=== PATIENT | male | born 1935 | race Caucasian/White ===

== ENCOUNTER → 2017-03-14 | Day surgery (SDC) | payer MEDICARE ==
[~2017-03-14] VITALS: Ht 175.3 cm; Wt 84.0 kg
[~2017-03-14] MED LIST: ACETAMINOPHEN 500 MG CPLT ONE; ASPI1TAB69 PO; AUGM875T PO; CLIN1CAP6 PO; CYCLOPENTOLATE HCL 1% OPHT SOLN 2 ML BTL ONE; FLURBIPROFEN 0.03% OPHT SOLN 2.5 ML BTL ONE; GLIM2TAB PO; GLYB5TAB3 PO; HYDR-3516 PO; LEVA750T PO; LEVO88TA2 PO; LIDOCAINE HCL 1% 30 ML VIAL ONE; LIDOCAINE HCL 2% JELLY 5 ML SYRINGE ONE; LISI10TA3 PO; METF1000 PO; OCUF0.3D RIGHT EYE; PHENYLEPHRINE HCL 10% OPTH SOLN 5 ML BTL ONE; PLAV75TA29 PO; PRAV10TA PO; PRED1SUS RIGHT EYE; PROPARACAINE HCL 0.5% OPHT SOLN 15 ML BTL ONE; SODIUM CHLORID 0.9% 500 ML INJ 500 ML ONE; TOBRAMYCIN/DEXAMETHASONE OPTH OINT 3.5 GM TUBE ONE; TROPICAMIDE 1% OPHT SOLN 15 ML BTL ONE
[2017-03-14 06:33] VITALS: BP 158/77; PULSE 64; RESP 16; TEMP 97.6; O2SAT 97
[2017-03-14 08:15] VITALS: TEMP 99.1
[2017-03-14 08:35] VITALS: BP 139/62; PULSE 65; RESP 16; O2SAT 98
--- NOTE | 2017-03-15 17:52 | MP ---
cc: KOLE MUSTAFA M.D. [facility] #[id number] DATE OF SURGERY 03/14/17 POSTOPERATIVE DIAGNOSIS: Visually significant cataract right eye. OPERATION: Phacoemulsification with posterior chamber lens implantation, right eye. SURGEON: Kole Mustafa MD ANESTHESIA: Topical with MAC. COMPLICATIONS: None. PROCEDURE: After informed consent was obtained, the patient was brought into the operative suite and placed on appropriate monitors by the Anesthesia Service. The patient had been given dilating drops and topical lidocaine gel in the holding area. The patient's operative eye was then prepped and draped in the usual sterile fashion. A wire lid speculum was placed. Further 2% lidocaine was then dropped on the cornea prior to beginning the procedure. A paracentesis incision was made in the peripheral cornea with a 1 mm pb keratome. The anterior chamber was filled with viscoelastic. The anterior chamber was then entered through a stepped, clear corneal incision using a sharp 3 mm pb keratome. A circular tear capsulorrhexis was then made with a bent needle cystitome. Following hydrodissection of the lens nucleus with balance saline, phaco-emulsification of the nucleus was performed using a modified chopping technique. The remaining cortex was removed with irrigation/aspiration. The prior two procedures were both performed using the handpieces of the [employer] phaco unit. The capsular bag was then filled with viscoelastic. The intraocular lens was then injected into the capsular bag and positioned. The type of intraocular lens and its power can be found elsewhere in this chart. The remaining viscoelastic was then removed from the anterior chamber with the IA handpiece. The anterior chamber was reformed with balanced saline. The wound was then closed securely with stromal hydration. It was found to be watertight to an intraocular pressure of at least 30 mmHg by palpation. A small amount of balanced salt solution was then removed through the paracentesis site and the intraocular pressure at the end of the case was approximately 20 by palpation. All drapes were then removed. TobraDex ointment was then placed in the eye, which was closed beneath a semi-pressure patch dressing. The patient tolerated this procedure well and left the operating room awake and alert. The patient is to follow-up in my office in the morning. MD GHASSAN Brar/ /9:33 AM /5:40 PM
== END | disposition home or self-care (01) ==
LOC: PHSDC 06:10
PROVIDERS: ATTEND Optometrist Occupational Vision
DX: H25.811 Combined forms of age-related cataract, right eye (principal); E11.9 Type 2 diabetes mellitus without complications; Z79.84 Long term (current) use of oral hypoglycemic drugs
CPT/HCPCS: 00142; 66984; J7040; V2632

== ENCOUNTER 2017-03-19 10:44 | Inpatient (IN) | payer MEDICARE ==
[~2017-03-19] VITALS: Ht 175.3 cm; Wt 85.1 kg
[~2017-03-19 10:44] MED LIST changes: -ACETAMINOPHEN 500 MG CPLT ONE; -AUGM875T PO; -CLIN1CAP6 PO; -CYCLOPENTOLATE HCL 1% OPHT SOLN 2 ML BTL ONE; -FLURBIPROFEN 0.03% OPHT SOLN 2.5 ML BTL ONE; -GLIM2TAB PO; -HYDR-3516 PO; -LIDOCAINE HCL 1% 30 ML VIAL ONE; -LIDOCAINE HCL 2% JELLY 5 ML SYRINGE ONE; -OCUF0.3D RIGHT EYE; -PHENYLEPHRINE HCL 10% OPTH SOLN 5 ML BTL ONE; -PRED1SUS RIGHT EYE; -PROPARACAINE HCL 0.5% OPHT SOLN 15 ML BTL ONE; -SODIUM CHLORID 0.9% 500 ML INJ 500 ML ONE; -TOBRAMYCIN/DEXAMETHASONE OPTH OINT 3.5 GM TUBE ONE; -TROPICAMIDE 1% OPHT SOLN 15 ML BTL ONE
[2017-03-19 10:51] VITALS: BP 155/70; PULSE 62; RESP 18; TEMP 97.8; O2SAT 100
[2017-03-19] MEDS ORDERED: TETANUS/DIPHTHERIA TOXOID ADULT 0.5 ML VIAL IM ONE (11:15)
[2017-03-19] MEDS ORDERED: VANCOMYCIN INJ 1,250 MG in SODIUM CHLOR 0.9% 250 ML INJ 250 ML IV ONE (11:15)
[2017-03-19] MEDS ORDERED: SODIUM CHLORID 0.9% 500 ML INJ 500 ML IV ONE (11:15)
[2017-03-19] MEDS ORDERED: cefTRIAXone INJ 2,000 MG in SODIUM CHLORIDE 0.9% INJ 100 ML IV ONE (11:15)
[2017-03-19 11:30] LABS: AUTOMATED NEUTROPHIL # 5.1 TH/MM3 (1.8-7.7); BASOPHIL % 0.5 % (0.0-2.0); EOSINOPHIL # 0.1 TH/MM3 (0-0.4); EOSINOPHIL % 1.9 % (0.0-4.0); HEMATOCRIT 33.1 % (39.0-51.0); HEMO FLAGS DIFF FINAL; LYMPH % 17.6 % (9.0-44.0); LYMPHOCYTE # 1.2 TH/MM3 (1.0-4.8); MEAN CELL VOLUME 87.3 FL (80.0-100.0); MEAN CORPUSCULAR HEMOGLOBIN 29.1 PG (27.0-34.0); MEAN CORPUSCULAR HGB CONC 33.4 % (32.0-36.0); MONO % 7.4 % (0.0-8.0); NEUT % 72.6 % (16.0-70.0); PLATELET COUNT 379 TH/MM3 (150-450); RED BLOOD COUNT 3.79 MIL/MM3 (4.50-5.90); RED CELL DISTRIBUTION WIDTH 12.3 % (11.6-17.2); WHITE BLOOD COUNT 6.9 TH/MM3 (4.0-11.0)
--- NOTE | 2017-03-19 11:30 | PD ---
HPI Chief Complaint: General Weakness Time Seen by Provider: 11:00 Travel History International Travel<30 days: No Contact w/Intl Traveler<30days: No Traveled to known affect area: No History of Present Illness HPI Patient is a 81-year-old male with history of diabetes, presents to emergency room for admission to the hospital. As per patient, he reports that he dropped a can on his right digit #3 about 9-10 days ago, reports that he noticed that his toe began to get infected. Patient reports that he went to his hand quilter office this morning, Dr. Tanner and was told to go to the ER for admission to the hospital. Reports that he is scheduled for the OR on as Dr. Tanner believes that he has osteomyelitis to his right third digit. Patient did have an x-ray in the office today. Byproducts Maker request an MRI of the foot with and without contrast as well as IV antibiotics and admission to the medicine service. Patient reports that he has not been on antibiotics for this new infection to his toe. PFSH Past Medical History Hx Anticoagulant Therapy: Yes (plavix) Asthma: No Autoimmune Disease: No Heart Rhythm Problems: No Cancer: No Cardiovascular Problems: Yes (RIGHT FOOT) High Cholesterol: Yes Chemotherapy: No Chest Pain: No Congestive Heart Failure: No COPD: Yes Cerebrovascular Accident: No Diabetes: Yes Patient Takes Glucophage: Yes Diminished Hearing: No Endocrine: No Gastrointestinal Disorders: No Glaucoma: No Genitourinary: No Hepatitis: No Hiatal Hernia: No Hypertension: Yes Immune Disorder: No Kidney Stones: No Medical other: Yes (PVD) Musculoskeletal: Yes (RIGHT 1ST & 2ND TOES AMPUTATED) Neurologic: Yes (NEUROPATHY) Psychiatric: No Reproductive: No Respiratory: Yes (COPD) Integumentary: No Migraines: No Radiation Therapy: No Seizures: No Sickle Cell Disease: No Sleep Apnea: No Thyroid Disease: Yes Ulcer: No Tetanus Vaccination: < 5 Years Influenza Vaccination: Yes Past Surgical History Abdominal Surgery: No AICD: No Arteriovenous Shunt: No Cardiac Surgery: Yes (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) Coronary Stent: Yes (RIGHT NECK) Ear Surgery: No Endocrine Surgery: No Eye Surgery: No Genitourinary Surgery: No Gynecologic Surgery: No Joint Replacement: No Oral Surgery: No Pacemaker: No Thoracic Surgery: No Tonsillectomy: Yes Other Surgery: Yes (HEMMORRHOIDS,TONSILS, RIGHT GREAT/2ND TOE AMPUTATION) Social History Alcohol Use: No Tobacco Use: No Substance Use: No Allergies-Medications (Allergen,Severity, Reaction): Coded Allergies: *MDRO Multi-Drug Resistant Organism (Verified Adverse Reaction, Unknown, ) 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 Reported Meds & Prescriptions Reported Meds & Active Scripts Active Reported Pravastatin 10 Mg Tab 10 Mg PO DAILY Metformin (Metformin HCl) 1,000 Mg Tab 1,000 Mg PO BIDPC With meals Lisinopril 10 Mg Tab 10 Mg PO DAILY Levothyroxine (Levothyroxine Sodium) 88 Mcg Tab 88 Mcg PO DAILY Levaquin (Levofloxacin) 750 Mg Tab 750 Mg PO DAILY Glyburide 5 Mg Tab 10 Mg PO BID Take with meals at the same time each day Plavix (Clopidogrel Bisulfate) 75 Mg Tab 75 Mg PO DAILY Aspirin 81 Mg Tabdr 81 Mg PO DAILY Review of Systems General / Constitutional: No: Fever, Chills Eyes: No: Visual changes HENT: No: Headaches Cardiovascular: No: Chest Pain or Discomfort Respiratory: No: Shortness of Breath Gastrointestinal: No: Abdominal Pain Genitourinary: No: Dysuria Musculoskeletal: Positive: Pain Skin: No Rash Neurologic: No: Weakness Psychiatric: No: Depression Endocrine: No: Polydipsia Hematologic/Lymphatic: No: Easy Bruising Physical Exam Narrative GENERAL: nad, nontoxic SKIN: Focused skin assessment warm/dry. HEAD: Atraumatic. Normocephalic. EYES: Pupils equal and round. No scleral icterus. No injection or drainage. ENT: No nasal bleeding or discharge. Mucous membranes pink and moist. NECK: Trachea midline. No JVD. CARDIOVASCULAR: Regular rate and rhythm. No murmur appreciated. RESPIRATORY: No accessory muscle use. Clear to auscultation. Breath sounds equal bilaterally. GASTROINTESTINAL: Abdomen soft, non-tender, nondistended. Hepatic and splenic margins not palpable. MUSCULOSKELETAL: No obvious deformities. Patient with area of open drainage to right toe digit #3 with purulent drainage, patient with redness from right foot to mild calf, pulses intact, neurovascularly intact. LLE: normal exam NEUROLOGICAL: Awake and alert. No obvious cranial nerve deficits. Motor grossly within normal limits. Normal speech. PSYCHIATRIC: Appropriate mood and affect; insight and judgment normal. Data Data Last Documented VS Vital Signs Date Time Temp Pulse Resp B/P Pulse Ox O2 Delivery O2 Flow Rate FiO2 03/19/17 10:51 97.8 62 18 155/70 100 Orders Basic Metabolic Panel (Bmp) (03/19/17 11:05) Complete Blood Count With Diff (03/19/17 11:05) Blood Culture (03/19/17 11:05) Iv Access Insert/Monitor (03/19/17 11:05) Ceftriaxone Inj (Rocephin Inj) (03/19/17 11:15) Vancomycin Inj (Vancomycin Inj) (03/19/17 11:15) Sodium Chlorid 0.9% 500 Ml Inj (Ns 500 M (03/19/17 11:15) Prothrombin Time / Inr (Pt) (03/19/17 11:17) Act Partial Throm Time (Ptt) (03/19/17 11:17) Labs Laboratory Tests Test 03/19/17 11:15 White Blood Count 6.9 TH/MM3 Red Blood Count 3.79 MIL/MM3 Hemoglobin 11.1 GM/DL Hematocrit 33.1 % Mean Corpuscular Volume 87.3 FL Mean Corpuscular Hemoglobin 29.1 PG Mean Corpuscular Hemoglobin 33.4 % Concent Red Cell Distribution Width 12.3 % Platelet Count 379 TH/MM3 Mean Platelet Volume 7.5 FL Neutrophils (%) (Auto) 72.6 % Lymphocytes (%) (Auto) 17.6 % Monocytes (%) (Auto) 7.4 % Eosinophils (%) (Auto) 1.9 % Basophils (%) (Auto) 0.5 % Neutrophils # (Auto) 5.1 TH/MM3 Lymphocytes # (Auto) 1.2 TH/MM3 Monocytes # (Auto) 0.5 TH/MM3 Eosinophils # (Auto) 0.1 TH/MM3 Basophils # (Auto) 0.0 TH/MM3 CBC Comment DIFF FINAL Differential Comment Prothrombin Time 11.0 SEC Prothromb Time International 1.0 RATIO Ratio Activated Partial 31.6 SEC Thromboplast Time Sodium Level 140 MEQ/L Potassium Level 4.6 MEQ/L Chloride Level 104 MEQ/L Carbon Dioxide Level 27.6 MEQ/L Anion Gap 8 MEQ/L Blood Urea Nitrogen 23 MG/DL Creatinine 1.40 MG/DL Estimat Glomerular Filtration 49 ML/MIN Rate Random Glucose 118 MG/DL Calcium Level 9.1 MG/DL MDM Medical Decision Making Medical Screen Exam Complete: Yes Emergency Medical Condition: Yes Interpretation(s) Vital Signs Date Time Temp Pulse Resp B/P Pulse Ox O2 Delivery O2 Flow Rate FiO2 03/19/17 10:51 97.8 62 18 155/70 100 Differential Diagnosis Osteomyelitis, cellulitis Narrative Course Patient is a 81-year-old male with history of DVTs, osteomyelitis, presents to emergency room for admission to the hospital. Patient follow up with his hand quilter today and had an xray as outpatient. Patient was sent to the emergency room for treatment and admission for osteomyelitis, request IV antibiotics, MRI of the foot with and without contrast as well as admission to medicine service. Patient does appear to have an infected right digit #3 with cellulitis. IV antibiotics as well as lab work and blood cultures ordered. Plan to admit to medicine service tetanus is up to date MRI of foot with and without contrast ordered via down time order forms as I am unable to order MRI via [employer] at this time case reviewed with who accepts pt to service Diagnosis Primary Impression: Osteomyelitis Qualified Code: M86.171 - Other acute osteomyelitis of right foot Additional Impression: Cellulitis in diabetic foot Admitting Information Admitting Physician Requests: Admit Genevieve Mclaughiln DO Mar 19, 2017 11:30
[2017-03-19 11:38] LABS: POTASSIUM 4.6 MEQ/L (3.5-5.1)
[2017-03-19 11:40] LABS: BICARBONATE 27.6 MEQ/L (21.0-32.0)
[2017-03-19 11:42] LABS: APTT (PATIENT) 31.6 SEC (24.3-30.1)
[2017-03-19] MEDS ORDERED: SODIUM CHLOR 0.9% 1000 ML INJ 1,000 ML IV SCH (12:15)
[2017-03-19] MEDS ORDERED: GADODIAMIDE PF 287 MG/ML 5 ML VIAL (for RAD MRI) IV ONE (13:42)
[2017-03-19] MEDS ORDERED: PRED1SUS RIGHT EYE (13:52)
[2017-03-19] MEDS ORDERED: OCUF0.3D RIGHT EYE (13:52)
[2017-03-19 13:55] VITALS: BP 142/60; PULSE 72; RESP 14; TEMP 97.9; O2SAT 98
[2017-03-19 14:15] VITALS: BP 147/69; PULSE 55; RESP 16; TEMP 96.6; O2SAT 100
[2017-03-19] MEDS: PIPERACIL-TAZO 3.375 GM PREMIX 50 ML IV SCH ×2 (15:15→22:37)
[2017-03-19] MEDS: INSULIN ASPART SUPPLEMENTAL SCALE SQ SCH ×2 (15:52→21:00)
--- NOTE | 2017-03-19 17:03 | HHI.HP ---
HPI Service [facility] Hospitalists Primary Care Physician Sky Rao MD, PhD Admission Diagnosis right toe osteomyelitis Chief Complaint: right 3rd toe infection/wound Travel History International Travel<30 Days: No Contact w/Intl Traveler <30 Da: No Traveled to Known Affected Are: No History of Present Illness Patient is a 81-year-old male well-known to me with history of diabetes and diabetic foot ulcers who presents to emergency room for admission to the hospital under direction of his terminal block assembler. As per patient, he reports that he dropped an old milk can on his right digit #3 about 9-10 days ago, reports that he noticed that his toe began to be read and infected appearing. He also noted some redness in his right lower leg which was worse with prolonged standing. Patient reports that he went to his terminal block assembler office this morning, Dr. Tanner and was told to go to the ER for admission to the hospital for possible surgical intervention. Reports that he is scheduled for the OR on morning as Dr. Tanner believes that he has osteomyelitis to his right third digit. Patient did have an x-ray in the office today. Belt Loop Machine Operator request an MRI of the foot with and without contrast as well as IV antibiotics and admission to the medicine service. Patient reports that he has not been on antibiotics for this new infection to his toe. Podiatry requested admission to medical service. Patient denies any fevers chills nausea or vomiting. He overall feels well but has noted some foul-smelling discharge from the foot starting last night. Review of Systems Constitutional: DENIES: Diaphoretic episodes, Fatigue, Fever, Weight gain, Weight loss, Chills, Dizziness, Change in appetite, Night Sweats Endocrine: DENIES: Heat/cold intolerance, Polydipsia, Polyuria, Polyphagia Eyes: DENIES: Blurred vision, Diplopia, Eye inflammation, Eye pain, Vision loss , Photosensitivity, Double Vision Ears, nose, mouth, throat: DENIES: Tinnitus, Hearing loss, Vertigo, Nasal discharge, Oral lesions, Throat pain, Hoarseness, Ear Pain, Running Nose, Epistaxis, Sinus Pain, Toothache, Odynophagia Respiratory: DENIES: Apneas, Cough, Snoring, Wheezing, Hemoptysis, Sputum production, Shortness of breath Cardiovascular: DENIES: Chest pain, Palpitations, Syncope, Dyspnea on Exertion , PND, Lower Extremity Edema, Orthopnea, Claudication Gastrointestinal: DENIES: Abdominal pain, Black stools, Bloody stools, BRB per rectum, Constipation, Diarrhea, GERD, Nausea, Reflux, Vomiting, Difficulty Swallowing, Anorexia, See HPI Musculoskeletal: COMPLAINS OF: Joint pain Integumentary: COMPLAINS OF: Rash Neurologic: COMPLAINS OF: Abnormal gait, Poor Balance Other Toe wound Past Family Social History Past Medical History Diabetes mellitus type 2, complicated by neuropathy/nephropathy PVD, angioplasty/arthrectomy to the RLE in 2011 with recurrent stenosis of the SFA vessel. RLE weakness (foot drop)/gait disorder, chronic COPD, PFT/Spirometry done on 09/27/14 revealed severe obstruction. HTN Hyperlipidemia Hypertensive CKD, stage 3 Hypothyroidism Cervical DDD and stenosis Past Surgical History Angioplasty/arthrectomy to the RLE [place] [address] Nora Hayes Hemorrhoidectomy Tonsillectomy with Adenoidectomy Surgical amputation of several toes Reported Medications Pravastatin 10 Mg Tab 10 Mg PO DAILY Metformin (Metformin HCl) 1,000 Mg Tab 1,000 Mg PO BIDPC With meals Lisinopril 10 Mg Tab 10 Mg PO DAILY Levothyroxine (Levothyroxine Sodium) 88 Mcg Tab 88 Mcg PO DAILY Levaquin (Levofloxacin) 750 Mg Tab 750 Mg PO DAILY Glyburide 5 Mg Tab 10 Mg PO BID Take with meals at the same time each day Plavix (Clopidogrel Bisulfate) 75 Mg Tab 75 Mg PO DAILY Aspirin 81 Mg Tabdr 81 Mg PO DAILY Allergies: Coded Allergies: *MDRO Multi-Drug Resistant Organism (Verified Adverse Reaction, Unknown, ) 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 Occasionally puffed on a cigar after that but has not done this in over a year. 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 Alert and oriented, cooperative with exam. SKIN: Erythema mid chaney and distal right lower extremity, right third toe with ulceration distally and apparent necrotic tip with partially avulsed nail HEAD: Atraumatic. Normocephalic. No temporal or scalp tenderness. EYES: Pupils equal round and reactive. Extraocular motions intact. No scleral icterus. No injection or drainage. ENT: Nose without bleeding, purulent drainage or septal hematoma. Airway patent. NECK: Trachea midline. No JVD or lymphadenopathy. Supple, nontender, no meningeal signs. CARDIOVASCULAR: Regular rate and rhythm without murmurs, gallops, or rubs. RESPIRATORY: Clear to auscultation. Breath sounds equal bilaterally. No wheezes , rales, or rhonchi. GASTROINTESTINAL: Abdomen soft, non-tender, nondistended. No hepato-splenomegaly , or palpable masses. No guarding. MUSCULOSKELETAL: Right third toe as noted above. Right great toe and second toe with partial amputation distally left second toe with amputation. No joint tenderness, effusion, or edema noted. No calf tenderness. NEUROLOGICAL: Awake and alert. Cranial nerves II through XII intact. Motor and sensory grossly within normal limits. Five out of 5 muscle strength in all muscle groups. Normal speech. Laboratory Laboratory Tests Test 03/19/17 11:15 White Blood Count 6.9 Red Blood Count 3.79 Hemoglobin 11.1 Hematocrit 33.1 Mean Corpuscular Volume 87.3 Mean Corpuscular Hemoglobin 29.1 Mean Corpuscular Hemoglobin 33.4 Concent Red Cell Distribution Width 12.3 Platelet Count 379 Mean Platelet Volume 7.5 Neutrophils (%) (Auto) 72.6 Lymphocytes (%) (Auto) 17.6 Monocytes (%) (Auto) 7.4 Eosinophils (%) (Auto) 1.9 Basophils (%) (Auto) 0.5 Neutrophils # (Auto) 5.1 Lymphocytes # (Auto) 1.2 Monocytes # (Auto) 0.5 Eosinophils # (Auto) 0.1 Basophils # (Auto) 0.0 CBC Comment DIFF FINAL Differential Comment Prothrombin Time 11.0 Prothromb Time International 1.0 Ratio Activated Partial 31.6 Thromboplast Time Sodium Level 140 Potassium Level 4.6 Chloride Level 104 Carbon Dioxide Level 27.6 Anion Gap 8 Blood Urea Nitrogen 23 Creatinine 1.40 Estimat Glomerular Filtration 49 Rate Random Glucose 118 Calcium Level 9.1 Date/Time Procedure Status Source Growth 03/19/17 11:15 Aerobic Blood Culture Received Blood Peripheral Pending 03/19/17 11:15 Anaerobic Blood Culture Received Blood Peripheral Pending Result Diagram: 03/19/17 1115 03/19/17 1115 Assessment and Plan Problem List: (1) Cellulitis in diabetic foot Status: Acute Plan: Continue IV antibiotics. Podiatry as been consult and is planning to take patient to OR on the at 7 AM. Possibly osteomyelitis. Does not appear septic. (2) PAD (peripheral artery disease) Status: Chronic Plan: Continue statins and abstinence from tobacco use. Management blood pressure. Follow for signs of acute ischemia. (3) HTN (hypertension), benign Status: Chronic Plan: Continue medication. (4) Hyperlipidemia Status: Chronic Plan: Continue medication. (5) COPD (chronic obstructive pulmonary disease) Status: Chronic Plan: Nebulizers when necessary. (6) Diabetes mellitus Status: Chronic Plan: Sliding scale insulin. Discussed Condition With Patient and his Physician Certification 2 Midnight Certification Type: Admission for Inpatient Services Order for Inpatient Services The services are ordered in accordance with Medicare regulations or non- Medicare payer requirements, as applicable. In the case of services not specified as inpatient-only, they are appropriately provided as inpatient services in accordance with the 2-midnight benchmark. Estimated LOS (days): 3 days is the estimated time the patient will need to remain in the hospital, assuming treatment plan goals are met and no additional complications. Post-Hospital Plan: Not yet determined Problem Qualifiers (1) Diabetes mellitus: Sky Rao MD PhD Mar 19, 2017 17:03
--- NOTE | 2017-03-19 17:29 | RADHPO ---
EXAM DATE/TIME: 03/19/2017 13:08 [facility] COMPARISON: MRI FOOT RIGHT W & W/O CONTRAST, October 17, 2015, 17:07. INDICATIONS : Osteomyelitis. Right 3rd digit redness. CONTRAST: 15 cc Omniscan (gadodiamide) IV MEDICAL HISTORY : Diabetes mellitus type 2. SURGICAL HISTORY : Cataracts. 2 toes on right foot removed. ENCOUNTER: Initial ACUITY: 4-6 days PAIN SCORE: 0/10 LOCATION: Right foot. TECHNIQUE: Multiplanar, multisequence MRI examination was performed without contrast and after the intravenous a dministration of gadolinium. FINDINGS: Prior MRI examination, before amputation of the distal phalanx of the 1st and 2nd digits had demonstr ated findings of osteomyelitis with enhancement in the distal phalanx and decreased signal on T1-weig hted images. There is no abnormal signal in the soft tissues about the amputation site. In the 3rd digit, distal phalanx, there is some enhancement surrounding the distal phalanx tuft, but no enhancement with in th e tuft. There is mild soft tissue swelling about the distal 3rd digit. No abnormality is seen in th e soft tissues about the 4th or 5th digit. No significant soft tissue swelling dorsally. There is m ild plantar soft tissue swelling. CONCLUSION: 1. No abnormal enhancement about the amputation sites distal 1st and 2nd digit. 2. There are equivocal findings in the distal phalanx of the 3rd digit with cortical enhancement and some T2 prolongation of the distal phalanx, but no internal enhancement. The findings are suspicious , but not diagnostic, osteomyelitis of the distal phalanx of the 3rd digit. Derrick Ignacio MD on March 19, 2017 at 17:08 Board Certified Radiologist. This report was verified electronically.
[2017-03-19] MEDS: OFLOXACIN 0.3% OPTH SOLN 5 ML BTL RIGHT EYE SCH ×2 (17:52→22:38)
[2017-03-19] MEDS: prednisoLONE ACETATE 1% OPHT SUSP 5 ML BTL RIGHT EYE SCH ×2 (17:52→22:40)
[2017-03-19 20:00] VITALS: BP 120/72; PULSE 58; RESP 20; TEMP 98.1; O2SAT 98
[2017-03-20] VITALS: BP 135/72; PULSE 58; RESP 16; TEMP 98.2; O2SAT 98
[2017-03-20 04:00] VITALS: BP 131/80; PULSE 55; RESP 18; TEMP 98; O2SAT 97
[2017-03-20] MEDS: PIPERACIL-TAZO 3.375 GM PREMIX 50 ML IV SCH ×3 (04:50→20:40)
[2017-03-20] MEDS: LEVOTHYROXINE SODIUM 88 MCG TAB PO SCH (06:02)
[2017-03-20] MEDS: INSULIN ASPART SUPPLEMENTAL SCALE SQ SCH ×4 (06:05→20:45)
--- NOTE | 2017-03-20 06:40 | HHI.PR ---
Subjective Remarks Feeling overall well. Denies any fevers or chills. Sleep was somewhat fragmented due to vital signs checks. Objective Vitals Vital Signs Date Time Temp Pulse Resp B/P Pulse Ox O2 Delivery O2 Flow Rate FiO2 03/20/17 04:00 98.0 55 18 131/80 97 03/20/17 00:00 98.2 58 16 135/72 98 03/19/17 20:00 98.1 58 20 120/72 98 03/19/17 14:15 96.6 55 16 147/69 100 03/19/17 14:10 03/19/17 13:55 97.9 72 14 142/60 98 Room Air 03/19/17 10:51 97.8 62 18 155/70 100 03/19/17 03/19/17 03/20/17 15:00 23:00 07:00 Intake Total 1652 ml 479 ml Output Total 250 ml 200 ml Balance 1402 ml 279 ml Intake Oral 380 ml IV Total 1272 ml 479 ml Output Urine Total 250 ml 200 ml # Bowel Movements 0 GENERAL: Awake and alert, cooperative. No acute distress. SKIN: Right third toe with distal wound and eschar with slight necrotic tissue formation. No discharge noted this morning. He actually has some tenderness to palpation over the wound. The right lower extremity cellulitic changes have improved. HEAD: Normocephalic. EYES: No scleral icterus. No injection or drainage. NECK: Supple, trachea midline. No JVD or lymphadenopathy. CARDIOVASCULAR: Regular rate and rhythm without murmurs, gallops, or rubs. RESPIRATORY: Breath sounds equal bilaterally. No accessory muscle use. GASTROINTESTINAL: Abdomen soft, non-tender, nondistended. Bowel sounds normal. MUSCULOSKELETAL: No cyanosis, or edema. BACK: Nontender without obvious deformity. No CVA tenderness. Result Diagram: 03/19/17 1115 03/19/17 1115 Urinary Catheter: No Vascular Central Line Catheter: No A/P Problem List: (1) Cellulitis in diabetic foot Status: Acute Plan: Continue IV antibiotics. Podiatry as been consult and is planning to take patient to OR on the at 7 AM. Possibly osteomyelitis. MRI noted. Does not appear septic. (2) PAD (peripheral artery disease) Status: Chronic Plan: Continue statins and abstinence from tobacco use. Management of blood pressure. Follow for signs of acute ischemia. (3) HTN (hypertension), benign Status: Chronic Plan: Continue medication. (4) Hyperlipidemia Status: Chronic Plan: Continue medication. (5) COPD (chronic obstructive pulmonary disease) Status: Chronic Plan: Nebulizers when necessary. (6) Diabetes mellitus Status: Chronic Plan: Sugars well controlled. Sliding scale insulin. Discharge Planning Hopefully discharge the day after surgery, but may need long-term antibiotic therapy. Problem Qualifiers (1) Diabetes mellitus: Sky Rao MD PhD Mar 20, 2017 06:39
[2017-03-20 06:43] LABS: CHLORIDE 106 MEQ/L (98-107); POTASSIUM 4.8 MEQ/L (3.5-5.1); SODIUM (NA) 142 MEQ/L (136-145)
[2017-03-20 06:47] LABS: ANION GAP 10 MEQ/L (5-15); BICARBONATE 25.6 MEQ/L (21.0-32.0); BLOOD UREA NITROGEN 20 MG/DL (7-18)
[2017-03-20 06:50] LABS: ALT (GPT) 14 U/L (12-78); AST (GOT) 10 U/L (15-37); GLOMERULAR FILTRATION RATE 49 ML/MIN (>89)
[2017-03-20 06:52] LABS: TOTAL BILIRUBIN ADULT 0.6 MG/DL (0.2-1.0)
[2017-03-20 06:53] LABS: ALKALINE PHOSPHATASE 59 U/L (45-117)
[2017-03-20] MEDS: prednisoLONE ACETATE 1% OPHT SUSP 5 ML BTL RIGHT EYE SCH ×4 (08:46→20:41)
[2017-03-20] MEDS: OFLOXACIN 0.3% OPTH SOLN 5 ML BTL RIGHT EYE SCH ×4 (08:46→20:40)
[2017-03-20] MEDS: PRAVASTATIN SOD 10 MG TAB PO SCH (08:47)
[2017-03-20] MEDS: ASPIRIN EC 81 MG TABEC PO SCH (08:47)
[2017-03-20] MEDS: LISINOPRIL 10 MG TAB PO SCH (08:47)
--- NOTE | 2017-03-20 10:59 | PD.CONS ---
History of Present Illness Service Podiatry Consult Requested By Reason for Consult R 3rd toe infection Primary Care Physician Sky Rao MD, PhD Diagnoses: History of Present Illness Patient was seen in clinic yesterday with a wound to tip of R 3rd toe and purulent drainage. He thought he may have had an injury to it or dropped something on it and part of some callused tissue had fallen off with the nail, as well as redness/swelling to the toe with drainage from the tip. He has history of infection/amputation/vascular issues. 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 RLE weakness (foot drop)/gait disorder, chronic COPD, PFT/Spirometry done on 09/27/14 revealed severe obstruction. HTN Hyperlipidemia Hypertensive CKD, stage 3 Hypothyroidism Cervical DDD and stenosis Past Surgical History Angioplasty/arthrectomy to the RLE [place] [address] Nora Hayes Hemorrhoidectomy Tonsillectomy with Adenoidectomy Surgical amputation of several toes Active Ordered Medications Current Medications Medications (Trade) Dose Ordered Sig/Henry Route Start Time Stop Time Status Last Admin (Zosyn 3.375 Gm Premix) 50 ml @ 100 mls/hr Q8H IV 03/19/17 13:00 03/20/17 04:50 (Ecotrin Ec) 81 mg DAILY PO 03/20/17 09:00 03/20/17 08:47 (Synthroid) 88 mcg DAILY@06 PO 03/20/17 06:00 03/20/17 06:02 (Prinivil) 10 mg DAILY PO 03/20/17 09:00 03/20/17 08:47 (Ocuflox 0.3% Opt Soln) 1 drop QID RIGHT EYE 03/19/17 18:00 03/20/17 08:46 (Pravachol) 10 mg DAILY PO 03/20/17 09:00 03/20/17 08:47 (Pred Forte 1% Opt Susp) 1 drop QID RIGHT EYE 03/19/17 18:00 03/20/17 08:46 (Restoril) 15 mg HS PRN PO 03/20/17 06:45 Family History Noncontributory Social History Former tobacco use, smoked 1ppd x 43 years No regular alcohol use, no illicit drug use Physical Exam Vital Signs Vital Signs Date Time Temp Pulse Resp B/P Pulse Ox O2 Delivery O2 Flow Rate FiO2 03/20/17 04:00 98.0 55 18 131/80 97 03/20/17 00:00 98.2 58 16 135/72 98 03/19/17 20:00 98.1 58 20 120/72 98 03/19/17 14:15 96.6 55 16 147/69 100 03/19/17 14:10 03/19/17 13:55 97.9 72 14 142/60 98 Room Air Physical Exam R distal 3rd toe with wound 4mm diameter and 1cm depth, probes to bone. Foul odor and purulence present with erythema and edema to digit. Laboratory Laboratory Tests Test 03/19/17 03/20/17 11:15 05:20 White Blood Count 6.9 Red Blood Count 3.79 Hemoglobin 11.1 Hematocrit 33.1 Mean Corpuscular Volume 87.3 Mean Corpuscular Hemoglobin 29.1 Mean Corpuscular Hemoglobin 33.4 Concent Red Cell Distribution Width 12.3 Platelet Count 379 Mean Platelet Volume 7.5 Neutrophils (%) (Auto) 72.6 Lymphocytes (%) (Auto) 17.6 Monocytes (%) (Auto) 7.4 Eosinophils (%) (Auto) 1.9 Basophils (%) (Auto) 0.5 Neutrophils # (Auto) 5.1 Lymphocytes # (Auto) 1.2 Monocytes # (Auto) 0.5 Eosinophils # (Auto) 0.1 Basophils # (Auto) 0.0 CBC Comment DIFF FINAL Differential Comment Prothrombin Time 11.0 Prothromb Time International 1.0 Ratio Activated Partial 31.6 Thromboplast Time Sodium Level 140 142 Potassium Level 4.6 4.8 Chloride Level 104 106 Carbon Dioxide Level 27.6 25.6 Anion Gap 8 10 Blood Urea Nitrogen 23 20 Creatinine 1.40 1.40 Estimat Glomerular Filtration 49 49 Rate Random Glucose 118 82 Calcium Level 9.1 8.8 Total Bilirubin 0.6 Aspartate Amino Transf 10 (AST/SGOT) Alanine Aminotransferase 14 (ALT/SGPT) Alkaline Phosphatase 59 Total Protein 6.7 Albumin 3.1 Date/Time Procedure Status Source Growth 03/19/17 11:15 Aerobic Blood Culture Received Blood Peripheral Pending 03/19/17 11:15 Anaerobic Blood Culture Received Blood Peripheral Pending Result Diagram: 03/19/17 1115 03/20/17 0520 Imaging Last Impressions Foot MRI 03/19/17 0000 Signed Impressions: Service Date/Time: Sunday, March 19, 2017 13:08 - CONCLUSION: 1. No abnormal enhancement about the amputation sites distal 1st and 2nd digit. 2. There are equivocal findings in the distal phalanx of the 3rd digit with cortical enhancement and some T2 prolongation of the distal phalanx, but no internal enhancement. The findings are suspicious, but not diagnostic, osteomyelitis of the distal phalanx of the 3rd digit. Derrick Ignacio MD Assessment and Plan Assessment and Plan Osteomyelitis R 3rd toe Plan for amputation tomorrow morning 7 am PO [place] NPO after midnight Sal Tanner DPM Mar 20, 2017 10:58
[2017-03-20 11:15] VITALS: BP 143/71; PULSE 58; RESP 18; TEMP 97.8; O2SAT 97
[2017-03-20 12:00] VITALS: BP 143/71; PULSE 58; RESP 18; TEMP 97.8; O2SAT 98
[2017-03-20 16:00] VITALS: BP 147/78; PULSE 55; RESP 18; TEMP 98.5; O2SAT 96
[2017-03-20 20:00] VITALS: BP 131/71; PULSE 53; RESP 20; TEMP 97.9; O2SAT 97
[2017-03-20] MEDS: TEMAZEPAM 15 MG CAP PO PRN (20:54)
[2017-03-21] VITALS (7 sets, daily range): BP systolic 122–138; BP diastolic 58–71; PULSE 50–60; RESP 15–20; TEMP 96.3–97.9; O2SAT 96–100
[2017-03-21] MEDS: PIPERACIL-TAZO 3.375 GM PREMIX 50 ML IV SCH ×3 (05:33→21:08)
[2017-03-21] MEDS: LEVOTHYROXINE SODIUM 88 MCG TAB PO SCH (05:33)
[2017-03-21] MEDS: INSULIN ASPART SUPPLEMENTAL SCALE SQ SCH ×4 (05:35→21:00)
[2017-03-21] MEDS ORDERED: BUPIVACAINE HCL PF 0.5% 30 ML VIAL ONE (06:32)
[2017-03-21] MEDS ORDERED: LIDOCAINE HCL 1% PF 30 ML VIAL ONE (06:32)
[2017-03-21] MEDS ORDERED: FAMOTIDINE 20 MG/2 ML VIAL ONE (06:58)
[2017-03-21] MEDS ORDERED: MIDAZOLAM HCL 2 MG/2 ML VIAL ONE (06:58)
--- NOTE | 2017-03-21 07:03 | HHI.PR ---
Subjective Remarks Feeling better. Reports that sports announcer removed some of the dark, dying tissue from toe yesterday. Going for surgery this AM and actually examined him in preop holding area. Objective Vitals Vital Signs Date Time Temp Pulse Resp B/P Pulse Ox O2 Delivery O2 Flow Rate FiO2 03/21/17 06:33 97.5 53 20 126/69 99 03/21/17 06:00 97.5 53 20 126/69 99 03/21/17 00:00 97.6 56 20 127/58 98 03/20/17 20:00 97.9 53 20 131/71 97 03/20/17 16:00 98.5 55 18 147/78 96 03/20/17 12:00 97.8 58 18 143/71 98 03/20/17 11:15 97.8 58 18 143/71 97 03/20/17 03/20/17 03/21/17 15:00 23:00 07:00 Intake Total 650 ml 310 ml 65 ml Output Total 400 ml 700 ml Balance 650 ml -90 ml -635 ml Intake Oral 650 ml 240 ml 0 ml IV Total 70 ml 65 ml Output Urine Total 400 ml 700 ml # Voids 3 1 1 # Bowel Movements 0 0 GENERAL: Awake and alert, cooperative. No acute distress. SKIN: Right third toe with distal wound and eschar with less necrotic tissue formation. No d/c. He actually has some tenderness to palpation over the wound. The right lower extremity cellulitic changes continue to improve. HEAD: Normocephalic. EYES: No scleral icterus. No injection or drainage. NECK: Supple, trachea midline. No JVD or lymphadenopathy. CARDIOVASCULAR: Regular rate and rhythm without murmurs, gallops, or rubs. RESPIRATORY: Breath sounds equal bilaterally. No accessory muscle use. GASTROINTESTINAL: Abdomen soft, non-tender, nondistended. Bowel sounds normal. MUSCULOSKELETAL: No cyanosis, or edema. right 3rd toe as noted. BACK: Nontender without obvious deformity. No CVA tenderness. Result Diagram: 03/19/17 1115 03/20/17 0520 Urinary Catheter: No Vascular Central Line Catheter: No A/P Problem List: (1) Cellulitis in diabetic foot Status: Acute Plan: Continue IV antibiotics. Podiatry as been consult and pt going for partial amputation right 3rd toe this AM. Possibly osteomyelitis. MRI noted. Does not appear septic. (2) PAD (peripheral artery disease) Status: Chronic Plan: Continue statins and abstinence from tobacco use. Management of blood pressure. Follow for signs of acute ischemia. (3) HTN (hypertension), benign Status: Chronic Plan: Continue medication. (4) Hyperlipidemia Status: Chronic Plan: Continue medication. (5) COPD (chronic obstructive pulmonary disease) Status: Chronic Plan: Nebulizers when necessary. (6) Diabetes mellitus Status: Chronic Plan: Sugars well controlled. Sliding scale insulin. Discharge Planning Hopefully discharge the day after surgery, but may need long-term antibiotic therapy. Problem Qualifiers (1) Diabetes mellitus: Sky Rao MD PhD Mar 21, 2017 07:03
[2017-03-21] MEDS ORDERED: PROPOFOL 200 MG/20 ML AMP IV ONE (08:00)
--- NOTE | 2017-03-21 08:01 | HHI.PR ---
Immediate Post Op Note Procedure Date: Mar 21, 2017 Pre Op Diagnosis: Osteomyelitis R 3rd toe, abscess/necrotic R 3rd toe Post Op Diagnosis: same Surgeon: Sal Tanner DPM Test Inspection Engineer(s): Staff Procedure: Amputation R 3rd toe Findings: Consistent with diagnosis. Additional Information: Distal 3rd digit with necrotic tip of toe and foul odor, Copious amount of purulent milky material actively draining from wound to distal digit when bandage removed. Erythema has receded and localized to half of R 3rd digit. No erythema at level of MTP joint. Toe disarticulated at MTP joint level with healthy white cartilage cap to 3rd metatarsal head. No tourniquet utilized. Good healthy bleeding tissue without necrosis or purulence noted to MTP joint R 3rd. Area cultured prior to irrigation with NS and closure with 2-0 and 3-0 nylon, followed by dressing with xeroform, 4x4, soft roll, gerda bandage. Ok to be weightbearing as tolerated R foot in surgical shoe at all times. Ok to d/c per podiatry standpoint on 2 weeks broad spectrum oral antibiotics and keep same postoperative bandage clean, dry, intact until next week follow up in clinic. Complications: None Specimen(s) removed: R 3rd toe to pathology Culture R 3rd toe amputation site prior to closure Estimated blood loss: 10mL Anesthesia: MAC, Local (10mL 1% lidocaine plain) Drains: None IVF Tourniquet time (min at mmHg) n/a Patient to: PACU Patient Condition: Good Date/Time of Procedure: SEE SURGICAL CARE RECORD Sal Tanner DPM Mar 21, 2017 08:01
[2017-03-21] MEDS: ASPIRIN EC 81 MG TABEC PO SCH (09:50)
[2017-03-21] MEDS: LISINOPRIL 10 MG TAB PO SCH (09:50)
[2017-03-21] MEDS: PRAVASTATIN SOD 10 MG TAB PO SCH (09:50)
[2017-03-21] MEDS: OFLOXACIN 0.3% OPTH SOLN 5 ML BTL RIGHT EYE SCH ×4 (09:51→21:08)
[2017-03-21] MEDS: prednisoLONE ACETATE 1% OPHT SUSP 5 ML BTL RIGHT EYE SCH ×4 (09:51→21:08)
[2017-03-21] MEDS ORDERED: LACTATED RINGER'S 1000 ML INJ 1,000 ML ONE (10:51)
[2017-03-21] MEDS: ACETAMINOPHEN/HYDROcodone 325 MG/5 MG TAB PO PRN ×2 (16:48→22:54)
[2017-03-21] MEDS: TEMAZEPAM 15 MG CAP PO PRN (22:53)
[2017-03-22] VITALS: BP 134/69; PULSE 60; RESP 18; TEMP 97.5; O2SAT 99
[2017-03-22] MEDS: PIPERACIL-TAZO 3.375 GM PREMIX 50 ML IV SCH (05:32)
[2017-03-22] MEDS: LEVOTHYROXINE SODIUM 88 MCG TAB PO SCH (05:32)
[2017-03-22] MEDS: INSULIN ASPART SUPPLEMENTAL SCALE SQ SCH (05:32)
[2017-03-22] MEDS: ACETAMINOPHEN/HYDROcodone 325 MG/5 MG TAB PO PRN (05:33)
--- NOTE | 2017-03-22 05:59 | HHI.PR ---
Subjective Remarks Feeling better. Does have some pain at the postop site but the Lortab seems to be controlling this. Objective Vitals Vital Signs Date Time Temp Pulse Resp B/P Pulse Ox O2 Delivery O2 Flow Rate FiO2 03/22/17 00:00 97.5 60 18 134/69 99 03/21/17 20:00 97.9 60 18 127/67 96 03/21/17 18:08 96.6 50 15 122/66 98 03/21/17 17:54 16 03/21/17 12:30 96.3 50 15 131/64 100 03/21/17 09:45 96.5 52 16 138/71 100 03/21/17 08:35 97.5 50 16 124/66 98 Room Air 03/21/17 08:25 52 16 132/80 98 Room Air 03/21/17 08:15 48 16 140/69 98 Room Air 03/21/17 08:00 97.6 49 15 107/61 99 Room Air 03/21/17 06:33 97.5 53 20 126/69 99 03/21/17 06:00 97.5 53 20 126/69 99 03/21/17 03/21/17 03/22/17 15:00 23:00 07:00 Intake Total 750 ml 185 ml 240 ml Output Total 300 ml 200 ml 400 ml Balance 450 ml -15 ml -160 ml Intake Oral 350 ml 240 ml IV Total 185 ml Other 400 ml Output Urine Total 300 ml 200 ml 400 ml # Bowel Movements 0 GENERAL: Awake and alert, cooperative. No acute distress. SKIN: Right foot with postop dressing in place. No discharge. Distal extremity cellulitis improved. HEAD: Normocephalic. EYES: No scleral icterus. No injection or drainage. NECK: Supple, trachea midline. No JVD or lymphadenopathy. CARDIOVASCULAR: Regular rate and rhythm without murmurs, gallops, or rubs. RESPIRATORY: Breath sounds equal bilaterally. No accessory muscle use. GASTROINTESTINAL: Abdomen soft, non-tender, nondistended. Bowel sounds normal. MUSCULOSKELETAL: No cyanosis, or edema. right 3rd toe as noted. BACK: Nontender without obvious deformity. Result Diagram: 03/19/17 1115 03/20/17 0520 Urinary Catheter: No Vascular Central Line Catheter: No A/P Problem List: (1) Cellulitis in diabetic foot Status: Acute Plan: Status post right third toe surgical amputation on March 21. Doing well. We'll convert to oral antibiotics 2 week course per discussion with podiatry yesterday. Discharge home (2) PAD (peripheral artery disease) Status: Chronic Plan: Continue statins and abstinence from tobacco use. Management of blood pressure. Follow for signs of acute ischemia. (3) HTN (hypertension), benign Status: Chronic Plan: Continue medication. (4) Hyperlipidemia Status: Chronic Plan: Continue medication. (5) COPD (chronic obstructive pulmonary disease) Status: Chronic Plan: Nebulizers when necessary. (6) Diabetes mellitus Status: Chronic Plan: Sugars well controlled. Sliding scale insulin. Discharge Planning Discharge home today on oral antibiotics for 2 weeks. Problem Qualifiers (1) Diabetes mellitus: Sky Rao MD PhD Mar 22, 2017 05:59
[2017-03-22] MEDS ORDERED: AUGM875T PO (06:02)
[2017-03-22] MEDS ORDERED: CLIN1CAP6 PO (06:02)
[2017-03-22] MEDS ORDERED: HYDR-3516 PO (06:02)
--- NOTE | 2017-03-22 06:06 | HHI.DS ---
Discharge Summary Admission Date Mar 19, 2017 at 12:54 Discharge Date: Mar 22, 2017 Admitting Diagnosis right toe osteomyelitis (1) Cellulitis in diabetic foot Diagnosis: Principal (2) PAD (peripheral artery disease) Diagnosis: Secondary (3) HTN (hypertension), benign Diagnosis: Secondary (4) Hyperlipidemia Diagnosis: Secondary (5) COPD (chronic obstructive pulmonary disease) Diagnosis: Secondary (6) Diabetes mellitus Diagnosis: Secondary Consultants Dr Tanner, podiatry Procedures Right 3rd toe amputation 03/21/17 Brief History Patient is a 81-year-old male well-known to me with history of diabetes and diabetic foot ulcers who presents to emergency room for admission to the hospital under direction of his airfreight operations agent. As per patient, he reports that he dropped an old milk can on his right digit #3 about 9-10 days ago, reports that he noticed that his toe began to be read and infected appearing. He also noted some redness in his right lower leg which was worse with prolonged standing. Patient reports that he went to his airfreight operations agent office this morning, Dr. Tanner and was told to go to the ER for admission to the hospital for possible surgical intervention. Reports that he is scheduled for the OR on morning as Dr. Tanner believes that he has osteomyelitis to his right third digit. Patient did have an x-ray in the office today. County Supervisor request an MRI of the foot with and without contrast as well as IV antibiotics and admission to the medicine service. Patient reports that he has not been on antibiotics for this new infection to his toe. Podiatry requested admission to medical service. Patient denies any fevers chills nausea or vomiting. He overall feels well but has noted some foul-smelling discharge from the foot starting last night. CBC/BMP: 03/19/17 1115 03/20/17 0520 Significant Findings Laboratory Tests Test 03/19/17 03/20/17 11:15 05:20 Red Blood Count 3.79 MIL/MM3 (4.50-5.90) Hemoglobin 11.1 GM/DL (13.0-17.0) Hematocrit 33.1 % (39.0-51.0) Neutrophils (%) (Auto) 72.6 % (16.0-70.0) Activated Partial 31.6 SEC Thromboplast Time (24.3-30.1) Blood Urea Nitrogen 23 MG/DL (7-18) 20 MG/DL (7-18) Creatinine 1.40 MG/DL 1.40 MG/DL (0.60-1.30) (0.60-1.30) Estimat Glomerular Filtration 49 ML/MIN (>89) 49 ML/MIN (>89) Rate Random Glucose 118 MG/DL (74-106) Aspartate Amino Transf 10 U/L (15-37) (AST/SGOT) Albumin 3.1 GM/DL (3.4-5.0) Hospital Course Patient admitted for suspected osteomyelitis right third toe. IV antibiotics initiated in podiatry consult. Patient taken to OR on March 21 for right third toe amputation. IV antibiotics will be converted to oral antibiotics for 2 week therapy per discussion with podiatry. Patient has follow-up with podiatry March 26. He is to leave current postop dressing in place until he is seen by podiatry on the . Patient remained stable throughout the hospital course. Pain is relatively well controlled with the Lortab 5/325 mg Pt Condition on Discharge: Stable Discharge Disposition: Discharge Home Discharge Instructions DIET: Follow Instructions for: Diabetic Diet Activities you can perform: Partial Weight Bearing Other Activity Instructions: Partial weightbearing right lower extremity. Elevate right lower extremity when possible. Follow up Referrals: PCP Follow-up Podiatry New Medications: Amoxicillin-Clavulanate (Augmentin) 875-125 mg Tab 875 MG PO BID not for use in CrCl <30 ml/min. Infection #28 Ref 0 TAB Clindamycin (Clindamycin) 300 Mg Cap 300 MG PO BID Infection #28 Ref 0 CAP Hydrocodone-Acetaminophen (Hydrocodone-Acetaminophen) 5-325 mg Tab 1 TAB PO Q6H PRN pain level 3-10 #24 TAB Continued Medications: Aspirin (Aspirin) 81 Mg Tabdr 81 MG PO DAILY TAB Clopidogrel (Plavix) 75 Mg Tab 75 MG PO DAILY Blood Clot Prevention #30 Ref 0 TAB Glyburide (Glyburide) 5 Mg Tab 10 MG PO BID Take with meals at the same time each day Blood Sugar Management # 120 Ref 0 TAB Levothyroxine (Levothyroxine) 88 Mcg Tab 88 MCG PO DAILY Thyroid #30 Ref 0 TAB Lisinopril (Lisinopril) 10 Mg Tab 10 MG PO DAILY #30 Ref 0 TAB Metformin (Metformin) 1,000 Mg Tab 1000 MG PO BIDPC With meals Blood Sugar Management #60 Ref 0 TAB Ofloxacin Opth Drops (Ocuflox Opth Drops) 0.3 % Drops 1 DROP RIGHT EYE QID Infection #1 Ref 0 BOTTLE Pravastatin (Pravastatin) 10 Mg Tab 10 MG PO DAILY Cholesterol Management #30 Ref 0 TAB Prednisolone Acetate Opth Drops (Pred Forte Opth Drops) 1% Susp 1 DROP RIGHT EYE QID Inflammation #1 Ref 0 BOTTLE Discontinued Medications: Levofloxacin (Levaquin) 750 Mg Tab 750 MG PO DAILY Infection Ref 0 TAB Sky Rao MD PhD Mar 22, 2017 06:06
--- NOTE | 2017-03-22 20:44 | EKG ---
Date Performed: 03/21/2017 Time Performed: 05:29:12 PTAGE: 81 years EKG: Sinus bradycardia with PAC(s) Left axis deviation Left anterior fascicular block incomplete Right bundle branch block More bradycardic Compared to previous tracing Abnormal ECG PREVIOUS TRACING : 10/20/2015 19.02 DOCTOR: Bryon Goldstein Interpretating Date/Time 03/22/2017 20:43:53
--- NOTE | 2017-03-24 08:52 | MP ---
cc: MICHANATHANChenPERLAMargie GONZALEZ DATE OF SURGERY: 03/21/2017 1937 INDICATION The patient presented to the clinic a couple days ago with increasing drainage, redness and swelling to his right forefoot and specifically the right third toe, was noted to have significant amount of necrotic tissue, purulent drainage actively coming from the area as well as erythema and edema to the digit and the forefoot areas. The patient was then sent to the emergency room to be admitted and evaluated for possible osteomyelitis which the MRI showed there was likely osteomyelitis correlated clinically with the fact that bone was able to be palpated through the wound. I discussed with the patient that he had a bone infection and would require amputation of the toe. I discussed with him that the morning of surgery after antibiotics for a few days, the redness and swelling had receded to approximately half of the digit. However, there was no functional benefit of keeping half of the digit and I strongly recommended that due to his significant vascular disease and difficulty with healing that we go ahead and remove the entire right third digit and he consented to amputation right third toe. PROCEDURE He was seen in preop holding by myself, nursing staff and Anesthesia where the correct patient, side and site were all confirmed to be correct in the right foot. He was then taken to the surgical suite, placed in supine position where attention was directed to the right foot, it was prepped and draped in normal sterile fashion followed by time-out as per hospital protocol. The right third metatarsophalangeal joint area was anesthetized using 10 mL of 1% lidocaine plain. He underwent sedation followed by two semi elliptical incisions encompassing the third metatarsophalangeal joint area in order to completely disarticulate the third digit at the metatarsophalangeal joint. There was noted to be white healthy cartilage cap to the third metatarsal head. No tourniquet was utilized. The area was copiously irrigated after culture was taken of the residual surgical site followed by the third toe sent to pathology for gross examination. The area was closed primarily using 2-0 and 3-0 Nylon suture followed by dressing consisting of Xeroform, 4x4s, ABD pad, cast padding and Frank bandage to the right foot. He will be weightbearing as tolerated the right foot in a surgical shoe. Follow up in my clinic in 1 week. I strongly recommend that he be discharged on 2 weeks of broad-spectrum oral antibiotics and follow up with me in my clinic in 1 week for his first dressing change and keep the surgical dressing clean, dry and intact in the meantime. SURGEON Dr. Sal Tanner. ELECTRICIAN HELPER Staff. PREOPERATIVE DIAGNOSIS Osteomyelitis right third toe. POSTOPERATIVE DIAGNOSIS Osteomyelitis right third toe. PROCEDURE Amputation right third toe. PROPHYLAXIS He is on scheduled Zosyn 3.375 mg q. 8. PATHOLOGY 1. Culture right third toe amputation site prior to closure. 2. Right third toe to pathology. ANESTHESIA Sedation plus 10 mL of 1% lidocaine plain local block. HEMOSTASIS None. ESTIMATED BLOOD LOSS 10 mL COMPLICATIONS None. DISPOSITION Weightbearing as tolerated to the right foot in a surgical shoe. Follow up in clinic in 1 week. Two weeks of oral antibiotics upon discharge. Okay to be discharged tomorrow or later today if he recovers well. Sal Tanner HM/TLL /8:15 AM /8:35 AM
[2017-04-18] MEDS ORDERED: GLIM2TAB PO (08:19)
== END 2017-03-22 07:15 | disposition home or self-care (01) | DRG 617 ==
LOC: PHOR 10:44 → PHEDA 12:54 → PH3A 14:07
PROVIDERS: ADMIT Family Medicine; ATTEND Family Medicine
PROC: 0Y6T0Z0 Detachment at Right 3rd Toe, Complete, Open Approach (ICD-10-PCS; principal; 2017-03-21 07:19)
DX: E11.69 Type 2 diabetes mellitus with other specified complication (principal); M86.171 Other acute osteomyelitis, right ankle and foot; E11.21 Type 2 diabetes mellitus with diabetic nephropathy; E11.40 Type 2 diabetes mellitus with diabetic neuropathy, unspecified; E11.22 Type 2 diabetes mellitus with diabetic chronic kidney disease; J44.9 Chronic obstructive pulmonary disease, unspecified; I12.9 Hypertensive chronic kidney disease with stage 1 through stage 4 chronic kidney disease, or unspecified chronic kidney disease; N18.3 Chronic kidney disease, stage 3 (moderate); I73.9 Peripheral vascular disease, unspecified; E78.00 Pure hypercholesterolemia, unspecified; N18.9 Chronic kidney disease, unspecified; Z79.84 Long term (current) use of oral hypoglycemic drugs; Z86.718 Personal history of other venous thrombosis and embolism; M50.30 Other cervical disc degeneration, unspecified cervical region; Z87.891 Personal history of nicotine dependence; E03.9 Hypothyroidism, unspecified; E78.5 Hyperlipidemia, unspecified
CPT/HCPCS: 73720; 80048; 80053; 82948; 85025; 85610; 85730; 87015; 87040; 87070; 87102; 87116; 87205; 87206; 88305; 88311; 93005; 96361; 96365; 96375; A9579; J0696; J2250; J2543; J3370; J7030; J7040; J7050; J7120; L3260

== ENCOUNTER → 2017-04-18 | Day surgery (SDC) | payer MEDICARE ==
[~2017-04-18] VITALS: Ht 175.3 cm; Wt 82.0 kg
[~2017-04-18] MED LIST changes: +AUGM875T PO; +CLIN1CAP6 PO; +CYCLOPENTOLATE HCL 1% OPHT SOLN 2 ML BTL ONE; +FLURBIPROFEN 0.03% OPHT SOLN 2.5 ML BTL ONE; +GLIM2TAB PO; +HYDR-3516 PO; -LEVA750T PO; +LIDOCAINE HCL 1% PF 30 ML VIAL ONE; +LIDOCAINE HCL 2% JELLY 5 ML SYRINGE ONE; +OCUF0.3D RIGHT EYE; +PHENYLEPHRINE HCL 10% OPTH SOLN 5 ML BTL ONE; +PRED1SUS RIGHT EYE; +PROPARACAINE HCL 0.5% OPHT SOLN 15 ML BTL ONE; +SODIUM CHLORID 0.9% 500 ML INJ 500 ML ONE; +TROPICAMIDE 1% OPHT SOLN 15 ML BTL ONE
[2017-04-18 07:52] VITALS: BP 174/87; PULSE 57; RESP 16; TEMP 97.8; O2SAT 99
[2017-04-18] MEDS: TOBRAMYCIN/DEXAMETHASONE OPTH OINT 3.5 GM TUBE ONE ×2 (09:21→09:25)
[2017-04-18 09:34] VITALS: TEMP 97.9
[2017-04-18 09:52] VITALS: BP 134/67; PULSE 51; RESP 16; O2SAT 100
--- NOTE | 2017-04-18 13:26 | MP ---
cc: KOLE MUSTAFA M.D. [facility] #: [id number] DATE: 04/18/2017 PREOPERATIVE DIAGNOSIS: Visually significant cataract left eye. POSTOPERATIVE DIAGNOSIS: Visually significant cataract left eye. OPERATION: Phacoemulsification with posterior chamber lens implantation, left eye. SURGEON: Kole Mustafa MD ANESTHESIA: Topical with MAC. COMPLICATIONS: None. PROCEDURE: After informed consent was obtained, the patient was brought into the operative suite and placed on appropriate monitors by the Anesthesia Service. The patient had been given dilating drops and topical lidocaine gel in the holding area. The patient's operative eye was then prepped and draped in the usual sterile fashion. A wire lid speculum was placed. Further 2% lidocaine was then dropped on the cornea prior to beginning the procedure. A paracentesis incision was made in the peripheral cornea with a 1 mm pb keratome. The anterior chamber was filled with viscoelastic. The anterior chamber was then entered through a stepped, clear corneal incision using a sharp 3 mm pb keratome. A circular tear capsulorrhexis was then made with a bent needle cystitome. Following hydrodissection of the lens nucleus with balance saline, phacoemulsification of the nucleus was performed using a modified chopping technique. The remaining cortex was removed with irrigation/aspiration. The prior two procedures were both performed using the handpieces of the [employer] phaco unit. The capsular bag was then filled with viscoelastic. The intraocular lens was then injected into the capsular bag and positioned. The type of intraocular lens and its power can be found elsewhere in this chart. The remaining viscoelastic was then removed from the anterior chamber with the IA handpiece. The anterior chamber was reformed with balanced saline. The wound was then closed securely with stromal hydration. It was found to be watertight to an intraocular pressure of at least 30 mmHg by palpation. A small amount of balanced salt solution was then removed through the paracentesis site and the intraocular pressure at the end of the case was approximately 20 by palpation. All drapes were then removed. TobraDex ointment was then placed in the eye, which was closed beneath a semi-pressure patch dressing. The patient tolerated this procedure well and left the operating room awake and alert. The patient is to follow-up in my office in the morning. MD GHASSAN Brar/BERKLEY /9:49 AM /1:22 PM
== END | disposition home or self-care (01) ==
LOC: PHSDC 06:40
PROVIDERS: ATTEND Optometrist Occupational Vision
DX: H25.12 Age-related nuclear cataract, left eye (principal)
CPT/HCPCS: 00142; 66984; J7040; V2632

== ENCOUNTER 2018-03-01 09:29 | Emergency (ER) | payer MEDICARE ==
[~2018-03-01] VITALS: Ht 175.3 cm; Wt 86.9 kg
[~2018-03-01 09:29] MED LIST changes: -AUGM875T PO; -CLIN1CAP6 PO; -CYCLOPENTOLATE HCL 1% OPHT SOLN 2 ML BTL ONE; -FLURBIPROFEN 0.03% OPHT SOLN 2.5 ML BTL ONE; -GLYB5TAB3 PO; -HYDR-3516 PO; -LIDOCAINE HCL 1% PF 30 ML VIAL ONE; -LIDOCAINE HCL 2% JELLY 5 ML SYRINGE ONE; -PHENYLEPHRINE HCL 10% OPTH SOLN 5 ML BTL ONE; -PROPARACAINE HCL 0.5% OPHT SOLN 15 ML BTL ONE; -SODIUM CHLORID 0.9% 500 ML INJ 500 ML ONE; -TROPICAMIDE 1% OPHT SOLN 15 ML BTL ONE
[2018-03-01 09:46] VITALS: BP 152/71; PULSE 78; RESP 16; TEMP 100.3; O2SAT 95
[2018-03-01] MEDS ORDERED: ASPI81CH6 CHEW (10:12)
[2018-03-01] MEDS ORDERED: LISI-519 PO (10:12)
[2018-03-01] MEDS ORDERED: MULTTAB67 PO (10:12)
[2018-03-01] MEDS ORDERED: METF500T PO (10:12)
[2018-03-01] MEDS ORDERED: CYAN1TAB24 PO (10:12)
[2018-03-01] MEDS ORDERED: AZITHROMYCIN INJ 500 MG in SODIUM CHLOR 0.9% 250 ML INJ 250 ML IV ONE (10:30)
[2018-03-01] MEDS ORDERED: SODIUM CHLORIDE 0.9% FLUSH 10 ML FLUSH IVF PRN (10:30)
[2018-03-01] MEDS ORDERED: methylPREDNISolone SOD SUCC 125 MG/2 ML VIAL IV PUSH ONE (10:30)
--- NOTE | 2018-03-01 10:30 | PD ---
HPI Chief Complaint: General Weakness Time Seen by Provider: 10:26 Travel History International Travel<30 days: No Contact w/Intl Traveler<30days: No Traveled to known affect area: No History of Present Illness HPI Patient presents with persistent cough for several days. Denies nausea vomiting diarrhea or fever. Denies sick contacts. Denies any history of COPD. Positive history of diabetes. PFSH Past Medical History Hx Anticoagulant Therapy: Yes (asa 81mg) Asthma: No Autoimmune Disease: No Anxiety: No Depression: No Heart Rhythm Problems: No Cancer: No Cardiovascular Problems: Yes (htn on meds) High Cholesterol: Yes Chemotherapy: No Chest Pain: No Congestive Heart Failure: No COPD: Yes Cerebrovascular Accident: No Diabetes: Yes (type 2) Patient Takes Glucophage: Yes Diminished Hearing: No Endocrine: No Gastrointestinal Disorders: No Glaucoma: No Genitourinary: No Headaches: No Hepatitis: No Hiatal Hernia: No Heparin Induced Thrombocytopen: No Hypertension: Yes Immune Disorder: No Implanted Vascular Access Dvce: No Kidney Stones: No Medical other: Yes (ACTINIC KERATOSIS, HYPERLIPIDEMIA, HYPERKALEMIA,) Musculoskeletal: Yes (CERVICAL AND LUMBAR) Neurologic: Yes (NEUROPATHY) Psychiatric: No Reproductive: No Respiratory: Yes (COPD) Integumentary: No Migraines: No Radiation Therapy: No Seizures: No Sickle Cell Disease: No Sleep Apnea: No Thyroid Disease: Yes Ulcer: No Tetanus Vaccination: < 5 Years Past Surgical History Abdominal Surgery: No AICD: No Arteriovenous Shunt: No Cardiac Surgery: Yes (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) Coronary Stent: Yes (RIGHT NECK) Ear Surgery: No Endocrine Surgery: No Eye Surgery: Yes (R CATARACT) Genitourinary Surgery: No Gynecologic Surgery: No Insulin Pump: No Joint Replacement: No Neurologic Surgery: No Oral Surgery: Yes (T&A) Pacemaker: No Thoracic Surgery: No Tonsillectomy: Yes Other Surgery: Yes (HEMMORRHOIDS,TONSILS) Social History Alcohol Use: No Tobacco Use: No Substance Use: No Allergies-Medications (Allergen,Severity, Reaction): Coded Allergies: *MDRO Multi-Drug Resistant Organism (Verified Adverse Reaction, Unknown, ) 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 Reported Meds & Prescriptions Reported Meds & Active Scripts Active Reported Multiple Vitamin 1 Tab 1 Tab PO DAILY B12 (Cyanocobalamin) 1,000 Mcg Tab 1 Tab PO DAILY Lisinopril 5 Mg Tab 5 Mg PO BID Metformin (Metformin HCl) 500 Mg Tab 500 Mg PO BIDPC Aspirin Low Dose (Aspirin) 81 Mg Chew 81 Mg CHEW DAILY Glimepiride 2 Mg Tab 2 Mg PO DAILY Take with breakfast or first main meal Pravastatin 10 Mg Tab 10 Mg PO DAILY Levothyroxine (Levothyroxine Sodium) 88 Mcg Tab 88 Mcg PO DAILY Plavix (Clopidogrel Bisulfate) 75 Mg Tab 75 Mg PO DAILY Review of Systems General / Constitutional: No: Fever Eyes: No: Visual changes HENT: No: Headaches Cardiovascular: No: Chest Pain or Discomfort Respiratory: Positive: Cough, No: Shortness of Breath Gastrointestinal: No: Abdominal Pain Genitourinary: No: Dysuria Musculoskeletal: No: Pain Skin: No Rash Neurologic: No: Weakness Psychiatric: No: Depression Endocrine: No: Polydipsia Hematologic/Lymphatic: No: Easy Bruising Physical Exam Narrative GENERAL: Well-nourished, well-developed patient. Fever SKIN: Focused skin assessment warm/dry. HEAD: Normocephalic. EYES: No scleral icterus. No injection or drainage. NECK: Supple, trachea midline. No JVD or lymphadenopathy. CARDIOVASCULAR: Regular rate and rhythm without murmurs, gallops, or rubs. RESPIRATORY: Decreased breath sounds bilateral bases left greater than right, no accessory muscle use. GASTROINTESTINAL: Abdomen soft, non-tender, nondistended. MUSCULOSKELETAL: No cyanosis, or edema. BACK: Nontender without obvious deformity. No CVA tenderness. Data Data Last Documented VS Vital Signs Date Time Temp Pulse Resp B/P (MAP) Pulse Ox O2 Delivery O2 Flow Rate FiO2 03/01/18 09:57 16 95 Room Air 03/01/18 09:46 100.3 78 152/71 (98) Orders Orders Complete Blood Count With Diff (03/01/18 10:26) Comprehensive Metabolic Panel (03/01/18 10:26) D-Dimer (03/01/18 10:26) Ckmb (Isoenzyme) Profile (03/01/18 10:26) Troponin I (03/01/18 10:26) Influenzae A/B Antigen (03/01/18 10:26) Iv Access Insert/Monitor (03/01/18 10:26) Ecg Monitoring (03/01/18 10:26) Oximetry (03/01/18 10:26) Oxygen Administration (03/01/18 10:26) Chest, Single Ap (03/01/18 10:26) Sodium Chloride 0.9% Flush (Ns Flush) (03/01/18 10:30) Methylprednisolone So Succ Inj (Solumedr (03/01/18 10:30) Azithromycin Inj (Zithromax Inj) (03/01/18 10:30) Acetaminophen (Tylenol) (03/01/18 11:00) CKMB (03/01/18 10:30) CKMB% (03/01/18 10:30) Labs Laboratory Tests Test 03/01/18 10:30 White Blood Count 14.1 TH/MM3 Red Blood Count 3.90 MIL/MM3 Hemoglobin 10.9 GM/DL Hematocrit 33.2 % Mean Corpuscular Volume 85.1 FL Mean Corpuscular Hemoglobin 28.1 PG Mean Corpuscular Hemoglobin Concent 33.0 % Red Cell Distribution Width 13.4 % Platelet Count 348 TH/MM3 Mean Platelet Volume 7.9 FL Neutrophils (%) (Auto) 92.1 % Lymphocytes (%) (Auto) 4.7 % Monocytes (%) (Auto) 3.0 % Eosinophils (%) (Auto) 0.1 % Basophils (%) (Auto) 0.1 % Neutrophils # (Auto) 13.0 TH/MM3 Lymphocytes # (Auto) 0.7 TH/MM3 Monocytes # (Auto) 0.4 TH/MM3 Eosinophils # (Auto) 0.0 TH/MM3 Basophils # (Auto) 0.0 TH/MM3 CBC Comment AUTO DIFF Differential Total Cells Counted 100 Neutrophils % (Manual) 80 % Band Neutrophils % 13 % Lymphocytes % 5 % Monocytes % 2 % Neutrophils # (Manual) 13.1 TH/MM3 Differential Comment FINAL DIFF MANUAL Platelet Estimate NORMAL Platelet Morphology Comment NORMAL Red Cell Morphology Comment NORMAL D-Dimer Quantitative (PE/DVT) 1.07 MG/L FEU Blood Urea Nitrogen 27 MG/DL Creatinine 1.60 MG/DL Random Glucose 220 MG/DL Total Protein 7.5 GM/DL Albumin 3.7 GM/DL Calcium Level 8.5 MG/DL Alkaline Phosphatase 80 U/L Aspartate Amino Transf (AST/SGOT) 24 U/L Alanine Aminotransferase (ALT/SGPT) 19 U/L Total Bilirubin 0.5 MG/DL Sodium Level 135 MEQ/L Potassium Level 4.5 MEQ/L Chloride Level 103 MEQ/L Carbon Dioxide Level 23.1 MEQ/L Anion Gap 9 MEQ/L Estimat Glomerular Filtration Rate 42 ML/MIN Total Creatine Kinase 242 U/L Creatine Kinase MB 3.7 NG/ML Troponin I LESS THAN 0.02 NG/ML MDM Medical Decision Making Medical Screen Exam Complete: Yes Emergency Medical Condition: Yes Differential Diagnosis Cough, pneumonia, viral upper respiratory infection, PE Narrative Course Assessment plan discussed with patient and at bedside. Patient received IV normal saline, IV Solu-Medrol and IV antibiotics prior to discharge Last 72 hours Impressions Chest X-Ray 03/01/18 1026 Signed Impressions: Service Date/Time: Thursday, March 01, 2018 10:32 - CONCLUSION: New mild patchy opacity at the left lung base is concerning for early pneumonia. Michael Mart MD Diagnosis Primary Impression: Pneumonia Qualified Codes: J18.1 - Lobar pneumonia, unspecified organism Patient Instructions: General Instructions Additional Instructions: Rest fluids and Tylenol for fever. Follow-up with PCP. Return to emergency room with any onset of new symptoms. Med/Other Pt SpecificInfo: Prescription(s) given Scripts Methylprednisolone Dosepak (Medrol Dosepak) 4 Mg Dspk 4 MG PO DIRECTED, #1 DSPK 0 Refills Per Pharmacist direction Prov: James Marroquin MD 03/01/18 Guaifenesin-Codeine Liq (Cheratussin AC Liq) 100-10 Mg/5 Ml Syrp 10 ML PO Q4H Y for COUGH AND COLD SYMPTOMS, #120 ML 0 Refills Do not exceed 6 doses/24 hrs. Prov: James Marroquin MD 03/01/18 Azithromycin (Zithromax) 500 Mg Tab 500 MG PO DAILY for Infection for 7 Days, #7 TAB 0 Refills Prov: James Marroquin MD 03/01/18 Disposition: 01 DISCHARGE HOME Condition: Good James Marroquin MD Mar 01, 2018 10:30
[2018-03-01 10:49] LABS: BASOPHIL % 0.1 % (0.0-2.0); EOSINOPHIL % 0.1 % (0.0-4.0); HEMATOCRIT 33.2 % (39.0-51.0); HEMOGLOBIN 10.9 GM/DL (13.0-17.0); LYMPH % 4.7 % (9.0-44.0); LYMPHOCYTE # 0.7 TH/MM3 (1.0-4.8); MEAN CELL VOLUME 85.1 FL (80.0-100.0); MEAN CORPUSCULAR HEMOGLOBIN 28.1 PG (27.0-34.0); MEAN PLATELET VOLUME 7.9 FL (7.0-11.0); MONOCYTE # 0.4 TH/MM3 (0-0.9); NEUT % 92.1 % (16.0-70.0); PLATELET COUNT 348 TH/MM3 (150-450); RED CELL DISTRIBUTION WIDTH 13.4 % (11.6-17.2); WHITE BLOOD COUNT 14.1 TH/MM3 (4.0-11.0)
--- NOTE | 2018-03-01 10:53 | RADRPT ---
EXAM DATE/TIME: 03/01/2018 10:32 [facility] COMPARISON: CHEST SINGLE AP, January 27, 2013, 10:16. INDICATIONS : Cough, short of breath, congestion MEDICAL HISTORY : None. SURGICAL HISTORY : None. ENCOUNTER: Initial ACUITY: 2 days PAIN SCORE: 0/10 LOCATION: Bilateral chest FINDINGS: A single AP erect portable view of the chest was obtained and demonstrates new mild patchy opacity at the left lung base. Right lung is clear. The heart and mediastinal structures are within normal limi ts. There is no perihilar edema. There is no effusion. Bony thorax is intact. CONCLUSION: New mild patchy opacity at the left lung base is concerning for early pneumonia. Michael Mart MD on March 01, 2018 at 10:50 Board Certified Radiologist. This report was verified electronically.
[2018-03-01 10:59] LABS: CHLORIDE 103 MEQ/L (98-107); SODIUM (NA) 135 MEQ/L (136-145)
[2018-03-01] MEDS ORDERED: ACETAMINOPHEN 325 MG TAB PO ONE (11:00)
[2018-03-01 11:02] LABS: CALCIUM 8.5 MG/DL (8.5-10.1)
[2018-03-01 11:03] LABS: ALBUMIN 3.7 GM/DL (3.4-5.0); BICARBONATE 23.1 MEQ/L (21.0-32.0); BLOOD UREA NITROGEN 27 MG/DL (7-18); GLUCOSE,RANDOM 220 MG/DL (74-106)
[2018-03-01 11:06] LABS: ALT (GPT) 19 U/L (12-78); AST (GOT) 24 U/L (15-37); GLOMERULAR FILTRATION RATE 42 ML/MIN (>89)
[2018-03-01 11:07] LABS: TOTAL BILIRUBIN ADULT 0.5 MG/DL (0.2-1.0); TOTAL PROTEIN 7.5 GM/DL (6.4-8.2)
[2018-03-01 11:09] LABS: ALKALINE PHOSPHATASE 80 U/L (45-117)
[2018-03-01 11:11] LABS: TROPONIN I LESS THAN 0.02 NG/ML (0.02-0.05)
[2018-03-01 11:27] LABS: BANDS 13 % (0-6); LYMPHOCYTES 5 % (9-44); MONOCYTES 2 % (0-8); NEUTROPHIL # MANUAL DIFF 13.1 TH/MM3 (1.8-7.7); POLYS (SEG NEUTROPHILS) 80 % (16-70)
[2018-03-01] MEDS ORDERED: MEDR4PAK PO (11:45)
[2018-03-01] MEDS ORDERED: CHERSYP2 PO (11:45)
[2018-03-01] MEDS ORDERED: ZITH500T PO (11:45)
[2018-03-01 11:53] VITALS: O2SAT 95
[2018-03-01 11:59] VITALS: BP 109/53; PULSE 66; RESP 16; O2SAT 96
== END 2018-03-01 12:34 | disposition home or self-care (01) ==
LOC: PHED 09:29
DX: J18.9 Pneumonia, unspecified organism (principal); I10 Essential (primary) hypertension; E78.00 Pure hypercholesterolemia, unspecified; J44.9 Chronic obstructive pulmonary disease, unspecified; E11.40 Type 2 diabetes mellitus with diabetic neuropathy, unspecified; E07.9 Disorder of thyroid, unspecified; Z79.02 Long term (current) use of antithrombotics/antiplatelets; Z79.82 Long term (current) use of aspirin; Z79.899 Other long term (current) drug therapy
CPT/HCPCS: 71045; 80053; 82550; 82552; 84484; 85007; 85027; 85379; 87804; 96365; 96375; 99284; J0456; J2930; J7050